=== PATIENT | male | born 1965 | race Caucasian/White ===

== ENCOUNTER 2022-02-15 11:57 | Emergency (ER) | payer MEDICAID ==
[~2022-02-15] VITALS: Ht 160 cm; Wt 50.0 kg
[2022-02-15 12:08] VITALS: BP 173/78
[2022-02-15] MEDS ORDERED: AMOX-424 MT (12:24)
[2022-02-15] MEDS ORDERED: DOXY100T2 MT (12:24)
[2022-02-15] MEDS ORDERED: TOPUD MT (12:24)
[2022-02-15] MEDS ORDERED: ACETAMINOPHEN 325MG TABLET PO ONE (12:30)
[2022-02-15] MEDS ORDERED: LIDOCAINE HCL/PF 1% 10 MG/ML 5ML VIAL INFIL ONE (12:30)
[2022-02-15] MEDS ORDERED: AMOXICILLIN/POTASSIUM CLAVULANATE 875/125MG TAB PO ONE (12:30)
[2022-02-15] MEDS ORDERED: DOXYCYCLINE HYCLATE 100MG CAPSULE PO ONE (12:30)
[2022-02-15] MEDS ORDERED: BACITRACIN ZINC OINT UDPKT TOP ONE (12:30)
[2022-02-15] MEDS ORDERED: LIDOCAINE HCL 1% 10 MG/ML 10ML VIAL INJ ONE (13:00)
== END 2022-02-15 13:55 | disposition home or self-care (01) ==
LOC: ER 12:13
DX: S61.215A Laceration without foreign body of left ring finger without damage to nail, initial encounter (principal); W61.91XA Bitten by other birds, initial encounter; Y93.89 Activity, other specified; Y92.89 Other specified places as the place of occurrence of the external cause; Y99.8 Other external cause status; Z79.899 Other long term (current) drug therapy
CPT/HCPCS: 12001; 73140; 99284; J3490; Z7610

== ENCOUNTER 2022-02-17 09:49 | Emergency (ER) | payer MEDICAID ==
[~2022-02-17] VITALS: Ht 165.1 cm; Wt 67.0 kg
[~2022-02-17 09:49] MED LIST: AMOX-424 MT; DOXY100T2 MT; TOPUD MT
[2022-02-17] MEDS ORDERED: BACITRACIN ZINC OINT UDPKT TOP ONE (10:45)
[2022-02-17 10:55] VITALS: BP 148/96
== END 2022-02-17 10:56 | disposition home or self-care (01) ==
LOC: ER 09:49
DX: S61.412D Laceration without foreign body of left hand, subsequent encounter (principal); Z48.00 Encounter for change or removal of nonsurgical wound dressing; X58.XXXD Exposure to other specified factors, subsequent encounter
CPT/HCPCS: 99282

== ENCOUNTER 2022-02-28 10:12 | Emergency (ER) | payer MEDICAID ==
[~2022-02-28] VITALS: Ht 165.1 cm; Wt 88.0 kg
[2022-02-28 10:40] VITALS: BP 147/70
== END 2022-02-28 11:36 | disposition home or self-care (01) ==
LOC: ER 10:17
DX: Z48.02 Encounter for removal of sutures (principal); S61.219D Laceration without foreign body of unspecified finger without damage to nail, subsequent encounter; X58.XXXD Exposure to other specified factors, subsequent encounter
CPT/HCPCS: 99281

== ENCOUNTER 2022-09-26 12:39 | Emergency (ER) | payer MEDICAID ==
[~2022-09-26] VITALS: Ht 162.6 cm; Wt 77.0 kg
[2022-09-26 12:44] VITALS: BP 176/83
== END 2022-09-26 14:53 | disposition home or self-care (01) ==
LOC: ER 12:39
DX: Z48.02 Encounter for removal of sutures (principal)
CPT/HCPCS: 99281; Z7610